=== PATIENT | female | born 2000 | race Caucasian/White ===

== ENCOUNTER 2024-01-29 09:05 | Outpatient (CLI) | payer MEDICAID | END 2024-01-29 23:59 | disposition home or self-care (01) | LOC: RAD 09:05 | PROVIDERS: ATTEND Neuromusculoskeletal Medicine & OMM | DX: R94.31 Abnormal electrocardiogram [ECG] [EKG] (principal); R40.4 Transient alteration of awareness; G40.409 Other generalized epilepsy and epileptic syndromes, not intractable, without status epilepticus | CPT/HCPCS: 95816 ==

== ENCOUNTER 2024-04-11 13:30 | Outpatient (CLI) | payer MEDICAID | END 2024-04-11 23:59 | disposition home or self-care (01) | LOC: MRI02 13:30 | PROVIDERS: ATTEND Neuromusculoskeletal Medicine & OMM | DX: R40.4 Transient alteration of awareness (principal) | CPT/HCPCS: 70551 ==